=== PATIENT | male | born 1960 | race Caucasian/White ===

== ENCOUNTER 2018-12-03 21:35 | Observation (INO) ==
[2018-12-03] MEDS ORDERED: ASPIRIN PO ONE (21:54)
--- NOTE | 2018-12-03 22:37 | EKG Report ---
Test Performed on : 12/03/2018 9:44:28 PM Test Reason : cp Blood Pressure : / mmHG Vent. Rate : 063 BPM Atrial Rate : 063 BPM P-R Int : 202 ms QRS Dur : 094 ms QT Int : 436 ms P-R-T Axes : 044 013 037 degrees QTc Int : 446 ms Normal sinus rhythm. Normal ECG No previous ECGs available Unconfirmed Result
[2018-12-03 22:50] LABS: BASO# 0.02 X1000 (0.0-0.2); BASO% 0.3 % (0.0-0.8); EOS# 0.28 X1000 (0.0-0.7); EOS% 3.6 % (0.0-10.0); HEMATOCRIT 46.1 % (42.0-52.0); HEMOGLOBIN 15.8 g/dL (14.0-18.0); IMM GRAN# 0.02 X1000 (0.0-0.04); IMM GRAN% 0.3 % (0.0-0.5); LYMPH% 39.9 % (20.5-51.1); MCHC 34.3 g/dL (33-37); MCV 84.7 FL (81-99); MONO# 0.74 X1000 (0.11-0.59); MONO% 9.5 % (1.7-9.3); MPV 9.4 FL (7.4-10.4); NEUT% 46.4 % (42.2-75.2); PLT 207 X1000 (130-400); RBC 5.44 XMIL (4.7-6.1); RDW 14.9 % (11.5-14.5); WBC 7.76 X1000 (4.8-10.8)
[2018-12-03 23:09] LABS: ALB/GLOB RATIO 1.6; ALBUMIN 4.3 g/dL (3.5-5.0); CALCIUM 9.5 mg/dL (8.8-10.2); CREATININE 1.3 mg/dL (0.7-1.2); POTASSIUM 4.2 mmol/L (3.5-5.1); TOTAL BILIRUBIN 0.31 mg/dL (0.20-1.00)
[2018-12-03] MEDS ORDERED: NITROGLYCERIN SL PRN (23:28)
--- NOTE | 2018-12-03 23:32 | PROVIDER DOCUMENTATION ---
This chart was entered by Yoselin Mendoza Scribe, acting as scribe for Karthikeyan Hill CRNP. HPI-Chest Pain - General Source: patient - History of Present Illness-CP Location: reports: substernal Chest Pain Radiation: reports: no radiation Quality of Pain: reports: pressure Onset/Duration: 1-3 hours ago Timing: improving, intermittent Context/Activities at Onset: reports: light activity Modifying Factors: improves with: rest. worse with: exercise, movement Associated Symptoms: reports: dizziness, fatigue, shortness of breath. denies: back pain, diaphoresis, edema, nausea, vomiting <Karthikeyan Hill - Last Filed: 12/03/18 23:40> <Blake Tovar - Last Filed: 12/03/18 23:49> - General Chief Complaint: Shortness of Breath Stated Complaint: SOB/DIZZY CHEST PRESSURE/HISTORY OF HEART PROBLEMS Time Seen by Provider: 12/03/18 21:52 - History of Present Illness-CP Nature of Presenting Problem: 57yom presents to ED cc midsternal chest pressure, palpitations, SOB, drop in blood pressure and dizziness that lasted about 20 minutes earlier. Pt reports his BP at home at was systolic of 118, rechecked after sitting down and as 90. Pt reports chest pressure came back when he got out to come into the ED. Pt reports he has stage 2 diastolic heart failure and AFIB. [facility] (Karthikeyan Hill) Review of Systems - Adult - REVIEW OF SYSTEMS - ADULT Constitutional: reports: see HPI, fatique. denies: chills, fever Eyes: reports: no symptoms reported Ears, Nose, Mouth & Throat: reports: no symptoms reported Cardiovascular: reports: see HPI, chest pain (left side), palpitations Respiratory: reports: see HPI, shortness of breath. denies: cough, wheezing Gastrointestinal: reports: no symptoms reported. denies: nausea, vomiting Genitourinary: reports: no symptoms reported Musculoskeletal: reports: no symptoms reported Integumentary: reports: no symptoms reported Neurological: reports: see HPI, dizziness/vertigo Psychiatric: reports: no symptoms reported Endocrine: reports: no symptoms reported Hematologic/Lymphatic: reports: no symptoms reported Allergic/Immunologic: reports: no symptoms reported All Other Systems: Reviewed and Negative <Karthikeyan Hill - Last Filed: 12/03/18 23:40> Past History - Adult - PAST MEDICAL HISTORY-ADULT Review of Records: reports: Nursing Assessment Review, Medications Reviewed, Social history reviewed & non-contributory. Major Childhood Illnesses: reports: denies history Cardiovascular: reports: denies history Respiratory: reports: denies history Gastrointestinal: reports: denies history Obstetrical/Gynecological: reports: denies history Genitourinary: reports: denies history Musculoskeletal: reports: denies history Neurological: reports: denies history Endocrine/Immune: reports: denies history Other Conditions: reports: denies history - IMMUNIZATION STATUS Childhood Immunizations: See Nurse Assessment Flu Vaccine: See Nurse Assessment - FAMILY HISTORY Family History: reviewed, not pertinent <Karthikeyan Hill - Last Filed: 12/03/18 23:40> Physical Exam-General - PHYSICAL EXAM-ADULT Initial Vital Signs Reviewed: Yes - CONSTITUTIONAL General Appearance: appears well, alert, no apparent distress. negative: anxious, combative - EYES Eyes: PERRL/EOMI, pink conjunctivae. negative: pale conjunctivae, photophobia - HEAD, EARS, NOSE, MOUTH & THROAT HENMT: moist mucous membranes - NECK Neck: full range of motion, supple, normal inspection - RESPIRATORY Respiratory: lungs clear, normal breath sounds, no respiratory distress, no accessory muscle use. negative: crackles, rales, rhonchi, stridor, wheezing - CARDIOVASCULAR Cardiovascular: normal peripheral pulses, regular rate, rhythm, no edema. negative: bradycardia, tachycardia - GASTROINTESTINAL (ABDOMEN) Abdominal Exam: normal bowel sounds, non tender, soft - MUSCULOSKELETAL Back Exam: normal inspection Extremity: normal range of motion, normal gait, normal inspection, no pedal edema, no calf tenderness, normal capillary refill. negative: deformity, erythema, inflammation, swelling - SKIN Integumentary: normal color, normal turgor, warm/dry. negative: cyanosis, diaphoresis, ecchymosis, erythema, jaundice, rash - NEUROLOGIC Neurologic: grossly normal, no motor/sensory deficits - PSYCHIATRIC Psych/Mental Status: normal mood/affect, normal thought content, normal thought process, oriented x 3. negative: disoriented x 3, anxious, disheveled, depressed affect <Karthikeyan Hill - Last Filed: 12/03/18 23:40> - HEART Score HEART Score: History: Moderately Suspicious HEART Score: ECG: Normal HEART Score: Age: 45-65 Years HEART Score: Risk Factors for Atherosclerotic Disease: > or = 3 Risk Factors or History of Atherosclerotic Disease HEART Score: Troponin: < or = Normal Limit Total HEART Score:: 4 <Karthikeyan Hill - Last Filed: 12/03/18 23:40> Progress - PLAN OF CARE/RESULTS Result Diagrams: 12/03/18 22:10 12/03/18 22:10 - REASSESSMENT Reassessment #1 Time Reassessed: 23:29 (discussed results with pt and suggest admission for cardiac r/o due to history and heart score. [facility], so will contact [facility] for possible transfer) - EKG 1 Time of EKG reading by physician:: 21:44 EKG Read and Signed by:: Blake Tovar EKG Interpretation (*Must complete 3 of following elements*): Normal Rate: 63 Rhythm: normal sinus QRS: normal ME Interval: normal - XRAY 1 XRAY Study: Chest Impression: See EMR Report - CHANGE OF SHIFT REPORT (ED Provider) 1 Report Given and Care Transferred to:: Dr Tovar Time of Transfer: 23:40 Items Pending: Other (possible [facility] transfer) <Karthikeyan Hill - Last Filed: 12/03/18 23:40> - PLAN OF CARE/RESULTS Result Diagrams: 12/03/18 22:10 12/03/18 22:10 - CONSULTS/PCP/HOSPITALIST Notification #1 *Consult/PCP/Hospitalist*: Dr Restrepo Time Discussed: 23:48 Consult Disposition: Will see in ED, Admit <Blake Tovar - Last Filed: 12/03/18 23:49> - PLAN OF CARE/RESULTS Progress/Plan/Lab Results: Vital Signs - 8 hr 12/03/18 21:48 Temperature 97.6 F Pulse Rate 65 Respiratory Rate 16 Blood Pressure 129/86 O2 Sat by Pulse Oximetry 96 Laboratory Results - last 24 hr 12/03/18 12/03/18 12/03/18 22:10 22:10 22:10 WBC 7.76 RBC 5.44 Hgb 15.8 Hct 46.1 MCV 84.7 MCH 29.0 MCHC 34.3 RDW Std Deviation 14.9 H Plt Count 207 MPV 9.4 Immature Gran % (Auto) 0.3 Neut % (Auto) 46.4 Lymph % (Auto) 39.9 [place] % (Auto) 9.5 H Eos % (Auto) 3.6 Baso % (Auto) 0.3 Immature Gran # (Auto) 0.02 Neut # (Auto) 3.60 Lymph # (Auto) 3.10 [place] # (Auto) 0.74 H Eos # (Auto) 0.28 Baso # (Auto) 0.02 Sodium 143 Potassium 4.2 Chloride 103 Carbon Dioxide 29 Anion Gap 11 BUN 13 Creatinine 1.3 H Estimated GFR/1.73 m2 57 BUN/Creatinine Ratio 10 Glucose 114 H Calculated Osmolality 286 Calcium 9.5 Total Bilirubin 0.31 AST 17 ALT 20 Alkaline Phosphatase 78 Creatine Kinase 87 Troponin T Slp-Q-Uoaycqvurmg Pept 63 Total Protein 7.0 Albumin 4.3 Globulin 2.7 Albumin/Globulin Ratio 1.6 12/03/18 22:10 WBC RBC Hgb Hct MCV MCH MCHC RDW Std Deviation Plt Count MPV Immature Gran % (Auto) Neut % (Auto) Lymph % (Auto) [place] % (Auto) Eos % (Auto) Baso % (Auto) Immature Gran # (Auto) Neut # (Auto) Lymph # (Auto) [place] # (Auto) Eos # (Auto) Baso # (Auto) Sodium Potassium Chloride Carbon Dioxide Anion Gap BUN Creatinine Estimated GFR/1.73 m2 BUN/Creatinine Ratio Glucose Calculated Osmolality Calcium Total Bilirubin AST ALT Alkaline Phosphatase Creatine Kinase Troponin T < 0.010 [id number]-X-Ctlxrntyrqz Pept Total Protein Albumin Globulin Albumin/Globulin Ratio Orders Category Date Time Status Orthostatic Vital Signs NOW Care 12/03/18 23:30 Active CHEST-2 VIEWS [RAD] Stat Exams 12/03/18 21:54 Taken BNP [PRO B-NATRIURETIC PEPTIDE] Stat Lab 12/03/18 22:10 Completed CBC WITH DIFF [HEME] Stat Lab 12/03/18 22:10 Completed CK PROFILE [SP CHEM] Stat Lab 12/03/18 22:10 Completed COMPREHENSIVE METABOLIC PANEL [CHEM] Stat Lab 12/03/18 22:10 Completed TROPONIN T Stat Lab 12/03/18 22:10 Completed Aspirin Med 12/03/18 21:54 Discontinued 325 mg PO NOW ONE Nitroglycerin Sl [Nitroglycerin] Med 12/03/18 23:28 Active 0.4 mg SL Q5M PRN PRN EKG [EKG] Stat Ther 12/03/18 21:54 Draft Departure - Departure Date of Disposition Decision: 12/03/18 Time of Disposition Decision: 23:41 Certified Medical Emergency: Emergent - Critical Care Note This patient required my direct & personal management of CC.: No <Karthikeyan Hill - Last Filed: 12/03/18 23:40> <Blake Tovar - Last Filed: 12/03/18 23:49> - Departure DIAGNOSIS: Chest pain Qualifiers: Chest pain type: unspecified Qualified Code(s): R07.9 - Chest pain, unspecified Disposition: ADMITTED INPATIENT 09 Condition: Stable Additional Freetext Instructions: ED Follow Up Instructions: You have been treated by a care provider in the Emergency Department. These instructions are being provided to you so you can have an understanding of how to care for yourself upon discharge. Upon discharge from the Emergency Department, you are responsible for making arrangements for follow-up care by a physician of your choice. Take all prescribed medications as directed. Return to the Emergency Department immediately for any new or worsening symptoms. You may call the Physician Referral phone number at [phone] to obtain a list of Physicians who are taking new patients. Referrals and Follow-Ups: None,PCP [Primary Care Provider] - Attestation - Physician/ ADRIANA Attestation Patient care was provided by Advanced Practice Provider:: Yes Advanced Practice Provider:: Karthikeyan Hill Advanced Practice Provider documentation review:: The Mid-level provider documentation, treatment plan and medical decision making was reviewed by the physician who agrees with all treatment and medical decision making by the MLP. <Karthikeyan Hill - Last Filed: 12/03/18 23:40> - Physician/ ADRIANA Attestation Patient care was provided by Advanced Practice Provider:: Yes Advanced Practice Provider documentation review:: The Mid-level provider documentation, treatment plan and medical decision making was reviewed by the physician who agrees with all treatment and medical decision making by the MLP. The physician spent face to face time with patient:: Yes Advanced Practice Provider documentation review:: Supervising physician onsite and consulted in the evaluation and care of this patient. The physician did have a face to face encounter with the patient. <Blake Tovar - Last Filed: 12/03/18 23:49> This chart was documented by the indicated scribe, (Yoselin Mendoza, [place]) and accurately reflects the services I performed and decisions made by me, Karthikeyan Hill CRNP, as attested by the provider's signature.
--- NOTE | 2018-12-04 01:14 | HISTORY AND PHYSICAL ---
PRIMARY CARE PHYSICIAN: [facility]. CHIEF COMPLAINT: Chest pain. HISTORY OF PRESENTING ILLNESS: A 57-year-old male with a history of atrial fibrillation, diabetes mellitus type 2, hypertension, hyperlipidemia, who presented to the emergency department with a 1- day history of having chest pain. He described it as pressure-like and states that he was short of breath. The patient had subsequently come to emergency department, where he was evaluated, and due to his presenting symptoms, was thought that we will place him for observation for further evaluation and management. At the time of my examination, patient denied any headache, fever, chills, nausea, vomiting, diarrhea, hemoptysis, melena, weight changes, but complained of chest pain. PAST MEDICAL HISTORY: Includes atrial fibrillation, diabetes mellitus type 2, hypertension, hyperlipidemia. PAST SURGICAL HISTORY: Left nephrectomy, cholecystectomy, right shoulder surgery. ALLERGIES: Penicillin. CURRENT MEDICATIONS: Eliquis 5 mg p.o. at bedtime, Lasix 40 mg p.o. at bedtime, gabapentin 100 mg p.o. at bedtime, glipizide 5 mg p.o. at bedtime, sotalol 120 mg p.o. at bedtime. SOCIAL HISTORY: No history of smoking. Admits to social alcohol use. Denies any illicit drug use. FAMILY HISTORY: No history of coronary disease. REVIEW OF SYSTEMS: Fourteen-point review of system as listed in HPI. Other systems negative. PHYSICAL EXAMINATION: GENERAL: Cooperative, friendly male. He is resting comfortably now. VITAL SIGNS: Temperature 97.6 degrees, pulse 65, respirations 16, blood pressure 129/86. HEENT: Atraumatic, normocephalic. Extraocular movements intact. PERRLA. NECK: Supple. CHEST: Clear to auscultation. CARDIOVASCULAR: Regular rate and rhythm. ABDOMEN: Soft, obese. Positive bowel sounds. EXTREMITIES: No edema. NEUROLOGIC: He is awake, alert, oriented x3. GENITOURINARY: No bladder distention. SKIN: Warm. LABORATORIES AND STUDIES: WBC 7.76, hemoglobin 15.8, hematocrit 46.1, platelets 207,000. Sodium 143, potassium 4.2, chloride 103, CO2 is 29, BUN is 13, creatinine is 1.3. Glucose 114. Troponin 0.010. ASSESSMENT: A 57-year-old male with a history of chronic atrial fibrillation, diabetes mellitus type 2, hypertension, hyperlipidemia, who presented to the emergency department with 1-day history of chest pain. The patient was evaluated the emergency department. Due to his presenting symptoms, we will place him for observation for further evaluation and management. 1. Chest pain. 2. Chronic atrial fibrillation. 3. Diabetes mellitus type 2. 4. Hypertension. PLAN: 1. We will admit patient to medical floor with telemetry. 2. Continue with cardiac workup. Check EKG, serial cardiac enzymes. Have patient continue on aspirin. We will use sublingual nitroglycerin p.r.n. chest pain. 3. Continue to monitor patient on telemetry and resume his sotalol for atrial fibrillation. 4. Monitor blood glucose and put patient on sliding scale insulin regimen. 5. Monitor blood pressure closely. 6. The patient is on Eliquis and this will suffice for DVT prophylaxis. 7. We will continue to follow and reassess, make further recommendations based on patient's clinical course. cc: Miguel Angel Restrepo MD MTDD
[2018-12-04] MEDS ORDERED: ZOFRAN IV PRN (03:55)
--- NOTE | 2018-12-04 06:03 | Diag Imaging Result Doc PS360 ---
EXAM: CHEST-2 VIEWS HISTORY: sob TECHNIQUE: Chest two views COMPARISON: None. FINDINGS: The lungs are well expanded. The heart is not enlarged. The vessels are not distended. There are no infiltrates. No pleural effusions. Left lower lobe granuloma. IMPRESSION: No acute abnormality. Electronically signed by Godfrey Amanda 12/04/2018 6:00 AM
[2018-12-04] MEDS: HUMULIN R SUBQ SCH ×2 (06:15→15:34)
[2018-12-04] MEDS ORDERED: PRILOSEC PO SCH (07:00)
[2018-12-04 07:27] VITALS: BP 127/78
[2018-12-04] MEDS ORDERED: ASPIRIN PO SCH (09:00)
--- NOTE | 2018-12-04 10:41 | EKG Report ---
Test Performed on : 12/04/2018 10:32:31 AM Test Reason : chest pain Blood Pressure : / mmHG Vent. Rate : 060 BPM Atrial Rate : 060 BPM P-R Int : 270 ms QRS Dur : 096 ms QT Int : 456 ms P-R-T Axes : 057 009 037 degrees QTc Int : 456 ms Sinus rhythm. with 1st degree AV block. with occasional premature ventricular complexes. Otherwise normal ECG When compared with ECG of 03-DEC-2018 21:44, (Unconfirmed) premature ventricular complexes. are now present AR interval has increased Confirmed by Lexus Milian MD ([id number]) on 12/07/2018 9:31:48 PM
--- NOTE | 2018-12-04 11:47 | CARDIOLOGY CONSULTATION ---
DATE: 12/04/2018 HISTORY OF PRESENT ILLNESS: Patient admitted with chest pain. A 57-year-old gentleman with history of diabetes, hypertension, hyperlipidemia, paroxysmal atrial fibrillation, who comes to the emergency room with mild chest discomfort, which he describes as pressure-like sensation off and on, which has been present for about a day. He was recently admitted at the [facility] for 4 days, when he was started on sotalol for atrial fibrillation, and he has been subsequently discharged from there, and has followup appointments to see the press set up at the [facility] in [place]. He has been taking his medications regularly. He had an episode of dizziness. No telma syncope. As far as his palpitations are concerned, since discharge from the hospital, he has not had palpitations. REVIEW OF SYSTEMS: A 14-point review of systems was done. GI: There is no history of nausea, vomiting, diarrhea. There is no history of hematemesis or melena. Central Nervous System: No focal weakness to suggest a CVA or TIA. Genitourinary: There is no dysuria or hematuria. PAST MEDICAL HISTORY: 1. Paroxysmal atrial fibrillation. 2. Diabetes. 3. Hypertension. 4. Hyperlipidemia. 5. His last cardiac catheterization in 2009 revealed normal coronary arteries. 6. He had a stress test at the [facility] in 2016, which per the patient was normal. 7. He has had a solitary kidney. PAST SURGICAL HISTORY: 1. Left nephrectomy. 2. Cholecystectomy. 3. Right shoulder surgery. CURRENT MEDICATIONS: Include Eliquis 5 mg p.o., Lasix 40 mg a day, gabapentin 100, glipizide 5, sotalol 120 mg p.o. at bedtime. ALLERGIES: Penicillin, Lortab. PHYSICAL EXAMINATION: Vital Signs: Blood pressure was 129/86. Cardiovascular: Normal jugular venous pressure. There is no thyromegaly. There is no carotid bruit. First and second heart sounds were heard. There is no S3, S4, or gallop. Respiratory: Normal air entry. There is no crepitations or rhonchi. Abdomen: Soft, nontender. There was no guarding or rigidity. Bowel sounds were heard. Central Nervous System: Alert and oriented. Was moving all 4 extremities. Extremities: No pedal edema. LABORATORY DATA: WBC 7.7, hemoglobin 15.8, hematocrit 46, platelet count of 207,000. Sodium 143, potassium 4.2, BUN 29, creatinine 1.3, glucose 114. Troponin was negative. ASSESSMENT AND PLAN: Mr. Dwayne Mcelroy is a 57-year-old gentleman with history of paroxysmal atrial fibrillation, hypertension, diabetes, hyperlipidemia, who was at the [facility] for atrial fibrillation, and had been started on sotalol. He is in sinus rhythm. He is admitted with chest discomfort. His cardiac enzymes were negative. Will set him up to undergo a Cardiolite stress test to assess for and rule out ischemia. Will get an echocardiogram to assess cardiac and valvular function. He is on Eliquis and sotalol as advised per the [facility]. He has been taking his medications regularly, and he has a followup appointment to see them. I have not made any changes to his medications. If his stress test and echocardiogram are unremarkable, will discharge him home, and recommend followup with his physicians. He has renal insufficiency secondary to nephrectomy in the past. Chest pains are atypical. Last cardiac catheterization in 2009 was unremarkable. Thank you for the consult. Will follow hospital course. cc: Haider Ramon MD
[2018-12-04] MEDS ORDERED: LEXISCAN ONE (11:56)
--- NOTE | 2018-12-04 14:39 | Diag Imaging Result Document ---
PROCEDURE NAME: MYOCARDIAL PERF SCAN, STR/REST - 12/04/2018 INDICATION: Chest pain. PROCEDURES PERFORMED: 1. Lexiscan stress. 2. One-day stress rest myocardial perfusion imaging. PROCEDURE IN DETAIL: Mr. Mcelroy was brought to the nuclear laboratory and had a resting study with injection of 16.1 mCi of technetium-99m sestamibi with the usual imaging protocol utilized. He subsequently was brought back and had a Lexiscan stress, and at peak stress was injected with 46 millicuries of technetium-99m sestamibi with the usual imaging protocol utilized. FINDINGS: Lexiscan stress results: 1. Baseline EKG shows sinus rhythm. 2. Lexiscan stress does not demonstrate any clear evidence of ischemic-related EKG changes or significant arrhythmias. Occasional PACs and PVCs were identified on this study. Perfusion imaging results: 1. There is evidence for what appears to be external contamination in both rest and stress images on the left side of the chest wall. 2. No evidence of transient ischemic dilatation. The ratio is 0.98. 3. Perfusion imaging demonstrates normal homogenous uptake of radiotracer throughout the myocardial segments. I do not see any evidence of stress-related defects. 4. There is a normal ejection fraction of 74%. The end-diastolic volume is 154, end-systolic volume is 40. Normal wall motion is identified. cc: MD Carmen Birch PA
[2018-12-04] MEDS ORDERED: LASIX PO SCH (21:00)
[2018-12-04] MEDS ORDERED: NEURONTIN PO SCH (21:00)
[2018-12-04] MEDS ORDERED: ELIQUIS PO SCH ×2 (21:00)
[2018-12-04] MEDS ORDERED: BETAPACE PO SCH (21:00)
--- NOTE | 2018-12-05 05:47 | DISCHARGE SUMMARY ---
ADMISSION DATE: 12/04/2018 DISCHARGE DATE: 12/04/2018 DIAGNOSES: 1. Paroxysmal atrial fibrillation. 2. Diabetes mellitus type 2. 3. Hypertension. 4. Right solitary kidney. CONSULTATIONS: Dr. Ramon, Cardiology. DIAGNOSTICS: Chest x-ray revealed no acute abnormality. Myocardial perfusion scan revealed evidence for what appears to be external contamination of both rest and stress images on the left side of the chest wall. No evidence of transient ischemic dilatation. Perfusion imaging demonstrates normal homogeneous uptake of radiotracer through the myocardial segments. I do not see any evidence of stress-related defects. Normal ejection fraction of 74%. Normal wall motion identified per Cardiology read. HOSPITAL COURSE: Mr. Mcelroy presented to the emergency room complaining of chest discomfort that he describes as a pressure-like sensation. It had been intermittent for about the last 24 hours. He had recently been admitted to the [facility] at that time for atrial fibrillation with RVR. He was started on sotalol and was subsequently discharged on sotalol and Eliquis. He states he had no palpitations after discharge. He ruled out. He underwent a Lexiscan which was negative for ischemia. He was evaluated by Dr. Ramon and thankfully he is able to be discharged with follow-up at the [facility] as scheduled. DISCHARGE VITAL SIGNS: Blood pressure is 127/78 with heart rate of 56, respirations 15, temperature is 98.1 degrees with room air saturations 99%. DISCHARGE PHYSICAL EXAMINATION: Cardiovascular: Regular rate and rhythm. S1 and S2 are appreciated. He has no lower extremity edema. Calves are nontender bilateral. Pulmonary: Breath sounds are clear with no increased work of breathing noted. Gastrointestinal: Abdomen is soft, nondistended, nontender with bowel sounds in all 4 quadrants. Neurologic: He is alert and oriented x3. FOLLOWUP: 1. 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 He already has an appointment scheduled. 2. He has been instructed to call to be seen sooner or return to the emergency room for any recurring syncope, dizziness, chest pain, palpitations, shortness of breath, cough, fever, chills, temperature greater than 101, any nausea, vomiting, diarrhea, constipation, black or bloody vomitus or stools, any hematuria, dysuria, frequency, urgency, any nose bleeds or gum bleeding, or frequent bruising. 3. He is being discharged home in stable condition with family members. TIME SPENT: This is a greater than 30 minute discharge. Dictated by TOMI Holder for Dat Gama MD cc: TOMI Holder Agree with the above. the following is my own face to face assessment. heart: RRR. lungs: CTAB. ruled out for ACS. 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 SHAHID
[2018-12-05] MEDS ORDERED: ASPIRIN PO SCH (09:00)
--- NOTE | 2018-12-05 13:53 | ECHO REPORT ---
ORDER DATE: 12/04/2018 INTERPRETING PHYSICIAN: Haider Ramon MD. ECHOCARDIOGRAPHIC MEASUREMENTS: 1. Interventricular septum 0.9 cm. 2. Left ventricular posterior wall 0.9 cm. 3. Diastolic diameter 5.0 cm. 4. Left atrium 3.7 cm. 5. Aorta 3.5 cm. SUMMARY OF THE 2-DIMENSIONAL IMAGIN. Aortic valve appears to be trileaflet. 2. Pulmonic valve was normal. 3. Mitral valve was normal. 4. Tricuspid valve was normal. 5. Technically suboptimal study. Endocardium not well visualized in all views. There is mild mitral regurgitation. 6. Mild tricuspid regurgitation. Peak velocity across the tricuspid valve less than 2 m/sec. 7. Peak velocity across the aortic valve less than 2 m/sec. There is no aortic stenosis. There is mild aortic regurgitation. 8. Optison was used to assess left ventricular systolic function. Normal left ventricular cavity size. Estimated ejection fraction of 60% to 65%. 9. There is no pericardial effusion or obvious intracardiac mass or thrombus seen. cc: MD Carmen Silverio PA
== END 2018-12-04 17:37 | disposition home or self-care (01) ==
LOC: 1N 21:35 → ED 21:35 → SUATTDRO 12-04 04:40
PROVIDERS: ATTEND Internal Medicine